=== PATIENT | male | born 1960 | race Caucasian/White ===

== ENCOUNTER 2017-01-07 11:32 | Day surgery (SDC) | payer OTHER ==
[2016-08-28 16:54] VITALS: BP 129/86
[~2017-01-07 11:32] MED LIST: LACTATED RINGERS 1,000 ML IV.SOLN IV ONE; LIDOCAINE HCL/PF 2% 100 MG/5 ML VIAL IJ ONE; PROPOFOL 500 MG/50 ML VIAL IV ONE; SALINE FLUSH 10 ML DISP.SYRIN IVF ONE
--- NOTE | 2017-01-07 13:54 | GI Report ---
REFERRING PHYSICIAN: Dr. Chencho Ballard SENIOR GAME DEVELOPER: Cesar Dayl MD PROCEDURE MEDICATION: Propofol as per anesthesia. INDICATIONS: A 56-year-old man who has has progressive difficulty swallowing over the last couple of months. He states he has never been evaluated before. Sometimes meats, bread, and dry things stop. He may be able to drink liquids to get them down or he may have to regurgitate them. Patient has a history of alcohol abuse in the past but has not drank for a couple of years. He still smokes a [id number] of cigarettes a day for 30 plus years. He has had a previous cholecystectomy. He is 5 feet 8 inches and weighs 220 pounds and carries that weight centrally. PROCEDURE PERFORMED: Endoscopy and esophageal dilatation with biopsies. PROCEDURE: An [employer] video endoscope was passed through the esophagus under direct visualization. Patient has grade 3 esophagitis at the GE junction with stricture. The cardia of the stomach with no obvious mass. He has severe gastritis particularly in the body and antrum with erosions, friability, and ulceration. Duodenal bulb also shows ulceration, superficial. A guidewire was placed in the stomach. The endoscope was removed and a 51-Panamanian, which is 17 mm, passed without resistance. The endoscope was re-introduced. There was some bleeding where the stricture was stretched. We did biopsy the stomach for pathology. We biopsied the GE junction, esophagitis. I do not see an obvious malignancy, though he is a high risk for that. FINDINGS: 1. Esophageal stricture dilated to a 51-Panamanian. 2. Grade 3 esophagitis. 3. Severe gastritis. RECOMMENDATIONS: 1. Pending the biopsies, he needs to be on a PPI daily like omeprazole 40 mg or 20 mg twice a day before breakfast and supper. 2. I recommend strongly discontinue tobacco usage. 3. Sleep with the bed elevated. 4. Pending the pathology, if there is Soto's esophagus, or anything else, he may need this re-looked at again within 2 years. cc: Dr. Chencho FELIX
== END 2017-01-07 11:33 ==
LOC: OPSURG 11:32
PROVIDERS: ATTEND Internal Medicine Gastroenterology
DX: K22.2 Esophageal obstruction (principal); K20.9 Esophagitis, unspecified; K29.70 Gastritis, unspecified, without bleeding; F10.21 Alcohol dependence, in remission; F17.210 Nicotine dependence, cigarettes, uncomplicated
CPT/HCPCS: 88305; 88342; J2001; J2704; J7120; 43248; S1016

== ENCOUNTER 2017-05-10 15:02 | Outpatient (CLI) | payer OTHER ==
[2016-08-28 16:54] VITALS: BP 129/86
== END 2017-05-10 15:03 ==
LOC: LABRHC 15:02
PROVIDERS: ATTEND Family Medicine
DX: N39.0 Urinary tract infection, site not specified (principal)
CPT/HCPCS: 87086; 87186

== ENCOUNTER 2018-08-04 20:29 | Emergency (ER) | payer OTHER ==
[2018-08-04] MEDS: NITROFURANTOIN 100 MG CAPSULE PO ONE (21:25)
[2018-08-04] MEDS: DOXYCYCLINE MONOHYDRATE 100 MG CAPSULE PO ONE (21:25)
--- NOTE | 2018-08-04 21:29 | ED Physician Documentation ---
General Adult - HISTORIAN Historian: patient - HPI Stated Complaint: Right Testicular Pain/Difficulty Urinating Chief Complaint: General Adult Additional Information: Lower abdominal and right scrotal pain began two days ago, with difficulty urinating. Took two leftover antibiotic pills earlier today and thought they made him better. Had UTI a year ago, his first. No fever. No other modifying factors or associated signs. - ROS CONST: no problems - PAST HX Past History: hypertension Allergies/Adverse Reactions: Allergies Allergy/AdvReac Type Severity Reaction Status Date / Time codeine Allergy Intermediate Hives Verified 08/04/18 20:42 Home Medications: Ambulatory Orders Medication Instructions Recorded Doxycycline Hyclate [Vibramycin] 100 mg PO Q12H #20 capsule 08/04/18 Nitrofurantoin Monohyd/M-Cryst 100 mg PO Q12H #14 capsule 08/04/18 [Macrobid 100 mg Capsule] amLODIPine BESYLATE [Norvasc] 5 mg PO DAILY 08/04/18 - SOCIAL HX Smoking History: cigarettes (1- 1 1/2 PPD since 10 y/o) - FAMILY HX Family History: No - VITAL SIGNS Vital Signs: Vital Signs Temp Pulse Resp BP Pulse Ox 98.1 F 82 18 158/68 98 08/04/18 20:30 08/04/18 20:30 08/04/18 20:30 08/04/18 20:30 08/04/18 20:30 - REVIEWED ASSESSMENTS Nursing Assessment Reviewed: Yes Vitals Reviewed: Yes Progress - Progress Progress: Given macrobid and doxycycline for likelihood of epididymitis in addition to UTI . ED Results Lab/Radiology - Orders Orders: ED Orders Category Date Time Status Doxycycline Monohydrate [Vibramycin] Med 08/04/18 21:21 Once 100 mg PO NOW ONE Nitrofurantoin Monohyd/M-Cryst [Macrobid] Med 08/04/18 21:21 Once 100 mg PO NOW ONE General Adult Physical Exam - PHYSICAL EXAM GENERAL APPEARANCE: mild distress EENT: eye inspection normal, ENT inspection normal NECK: normal inspection RESPIRATORY: no resp distress, breath sounds normal CVS: reg rate & rhythm, heart sounds normal ABDOMEN: other (right testicle quite tender to touch. Not tense.) BACK: no CVA tenderness, other (no vertebral tenderness) SKIN: warm/dry, normal color EXTREMITIES: normal range of motion (slow gait), no evidence of injury NEURO: CN's nml as tested, motor nml, sensation nml, cognition normal Discharge Clincal Impression: UTI (urinary tract infection) Qualifiers: Urinary tract infection type: acute cystitis Hematuria presence: with hematuria Qualified Code(s): N30.01 - Acute cystitis with hematuria Prescriptions: Doxycycline Hyclate [Vibramycin] 100 mg PO Q12H #20 capsule Nitrofurantoin Monohyd/M-Cryst [Macrobid 100 mg Capsule] 100 mg PO Q12H #14 capsule Referrals: Chencho Ballard MD [Primary Care Provider] - 2 Days Condition: Good Disposition: HOME, SELF-CARE Decision to Admit: NO Decision Time: 21:32
[2018-08-04 21:30] VITALS: BP 140/68
[2018-08-05 06:35] LABS: APPEARANCE,URINE CLOUDY (CLEAR); COLOR,URINE YELLOW (YELLOW); OCCULT BLOOD,URINE 2+ (NEGATIVE); PH URINE 6.5 (5.0 - 8.0)
== END 2018-08-04 21:28 | disposition home or self-care (01) ==
LOC: ED 20:29
DX: N30.01 Acute cystitis with hematuria (principal)
CPT/HCPCS: 81002; 87086; 99283

== ENCOUNTER 2018-08-06 12:16 | Outpatient (CLI) | payer OTHER ==
--- NOTE | 2018-08-06 18:44 | Diagnostic Imaging Report ---
JUJU ALLEN [facility] [address] [facility] [address] [address] Report Submission Date: Aug 06, 2018 12:53:37 PM CDT Patient Study Name: YOGI HUANG Date: Aug 06, 2018 12:23:05 PM CDT Modality Type: DX Gender: M Description: LOWER EXTREMITY : 60 Institution: [facility] Physician: JUJU ALLEN Examination: Plain film left knee History: LEFT KNEE, PAIN AND LOCKING IN LEFT KNEE. PT STATES INJURY TO KNEE OVER 20 YEARS AGO WITH PAIN WORSENING SINCE INJURY. NO RECENT INJURY (Hx) Findings: 3 views of the left knee demonstrates articular degenerative spurring. Medial joint space narrowing. No fracture. No dislocation. No joint effusion. No soft tissue irregularity. Impression: Degenerative changes. No acute osseous abnormality Electronically signed on Aug 06, 2018 12:53:37 PM CDT by: Jacob FELIX
--- NOTE | 2018-08-06 18:45 | Diagnostic Imaging Report ---
JUJU ALLEN [facility] [address] [facility] [address] [address] Report Submission Date: Aug 06, 2018 12:52:20 PM CDT Patient Study Name: YOGI HUANG Date: Aug 06, 2018 12:17:35 PM CDT Modality Type: DX Gender: M Description: SHOULDER : 60 Institution: [facility] Physician: JUJU ALLEN Examination: Plain film left shoulder History: LEFT SHOULDER, PAIN IN LEFT SHOULDER WORSENING FOR ABOUT A MONTH, NO KNOWN INJURY (Hx) Comparison exams: None provided Findings: 3 views of the left shoulder demonstrate normal cortical margins. No evidence for fracture or dislocation. Acromioclavicular joint degenerative spurring. No soft tissue abnormality Impression: Degenerative changes. No acute osseous process. Electronically signed on Aug 06, 2018 12:52:20 PM CDT by: Jacob FELIX
== END 2018-08-06 12:18 ==
LOC: RAD 12:16
PROVIDERS: ATTEND Family Medicine
DX: M25.512 Pain in left shoulder (principal); M25.562 Pain in left knee
CPT/HCPCS: 73030; 73562

== ENCOUNTER 2019-02-17 18:28 | Emergency (ER) | payer OTHER ==
[2019-02-17 19:18] LABS: MEAN CORPUSCULAR HEMOGLOBIN 29.9 pg (28.0-34.0)
[2019-02-17 19:19] LABS: BASOPHILS % 1.8 (0.0-1.5); EOSINOPHILS % 1.9 % (0.0-6.8); MONOCYTES % 7.3 % (0.0-11.0)
[2019-02-17 19:20] LABS: eGFR (Non-African) > 60
--- NOTE | 2019-02-17 19:25 | ED Physician Documentation ---
Upper Respiratory Symptoms - HISTORIAN Historian: patient - HPI Stated Complaint: cough/wheezing Chief Complaint: Cough/ Upper Respiratory Onset: days ago (11) Context: denies: recent foreign travel, insect bite(s), tick(s), recent chemotherapy, multiple patients, same sx, other Severity: moderate Associated Symptoms: fever, chills, runny nose, sore throat, productive cough Further Comments: yes (58 year old male patient presents with complaints of body aches, cough, congestion, wheezing, fever and chills for the past 11 days. Reports using some old antibiotics that he had at home for a few days. Does not know what kind or how many.) - ROS CONST/EYES: denies: weakness, eye redness, eye itching, other CVS/RESP: denies: none, chest pain, shortness of breath, palpitations, other LYMPH: denies: leg swelling, rash, swollen glands, ankle swelling, other GI/: none - PAST HX Lung Disease: COPD PE Risk Factors: hypertension Other History: other (GERD) Allergies/Adverse Reactions: Allergies Allergy/AdvReac Type Severity Reaction Status Date / Time codeine Allergy Intermediate Hives Verified 02/17/19 18:43 Home Medications: Ambulatory Orders Medication Instructions Recorded Benzonatate [Tessalon] 200 mg PO TID PRN #30 capsule 02/17/19 - SOCIAL HX Smoking History: cigarettes - FAMILY HX Family History: denies: none - VITAL SIGNS Vital Signs: Vital Signs Temp Pulse Resp BP Pulse Ox 97.6 F 83 24 145/72 94 02/17/19 18:36 02/17/19 18:36 02/17/19 18:36 02/17/19 18:36 02/17/19 18:36 - REVIEWED ASSESSMENTS Nursing Assessment Reviewed: Yes Vitals Reviewed: Yes Progress - Progress Progress: likely false negative influenza or viral syndrome. Lab WNL ED Results Lab/Radiology - Lab Results Lab Results: Lab Results 02/17/19 02/17/19 18:45 18:45 WBC 10.70 K/ul K/ul (4.00-12.00) RBC 5.20 M/ul M/ul (3.90-5.20) Hgb 15.5 g/dL g/dL (12.0-18.0) Hct 46.5 % % (37.0-53.0) MCV 89.0 fl fl (80.0-100.0) MCH 29.9 pg pg (28.0-34.0) MCHC 33.4 g/dL g/dL (30.0-36.0) RDW 13.9 % % (11.3-14.3) Plt Count 281 K/mm3 K/mm3 (130-400) Neut % (Auto) 55.8 % % (39.0-79.0) Lymph % (Auto) 33.2 % % (16.0-50.0) [place] % (Auto) 7.3 % % (0.0-11.0) Eos % (Auto) 1.9 % % (0.0-6.8) Baso % (Auto) 1.8 H (0.0-1.5) Neut # (Auto) 6.0 # k/uL # k/uL (1.4-7.7) Lymph # (Auto) 3.5 # k/uL # k/uL (0.6-4.0) [place] # (Auto) 0.8 # k/uL # k/uL (0.0-0.9) Eos # (Auto) 0.2 # k/uL # k/uL (0.0-0.6) Baso # (Auto) 0.2 # k/uL # k/uL (0.0-0.5) Sodium 143 mmol/L mmol/L (136-145) Potassium 3.9 mmol/L mmol/L (3.5-5.1) Chloride 104 mmol/L mmol/L (98-107) Carbon Dioxide 27 mmol/L mmol/L (22-30) BUN 10 mg/dL mg/dL (9-20) Creatinine 0.69 mg/dL mg/dL (0.66-1.25) Estimated Creat Clear 371 Est GFR ( Amer) > 60 (60 - ) Est GFR (Non-Af Amer) > 60 (60 - ) Glucose 99 mg/dL mg/dL (74-106) Calcium 8.9 mg/dL mg/dL (8.4-10.2) Total Bilirubin 0.3 mg/dL mg/dL (0.2-1.3) AST 29 U/L U/L (15-46) ALT 25 U/L U/L (13-69) Alkaline Phosphatase 86 U/L U/L (38-126) Total Protein 8.4 g/dL H g/dL (6.3-8.2) Albumin 4.0 g/dL g/dL (3.5-5.0) - Radiology Radiology Impressions: CHEST 2 VIEW HISTORY: FEVER, COUGH, SMOKER. FINDINGS: The PA & lateral chest x-ray demonstrate lungs to be clear of focal infiltrates and expanded bilaterally. Cardiac silhouette and bony thorax are unremarkable. IMPRESSION: No active intrathoracic disease seen. Electronically signed on Feb 17, 2019 7:15:27 PM CDT by: Marc Cuba - Orders Orders: ED Orders Category Date Time Status Place IV Lock 1T Care 02/17/19 18:37 Active CHEST 2VIEW [RAD] Stat Exams 02/17/19 18:37 Taken CBC/PLATELET/DIFF Stat Lab 02/17/19 18:45 Completed CMP Stat Lab 02/17/19 18:45 Completed INFLUENZA A&B Stat Lab 02/17/19 18:37 Ordered Benzonatate [Tessalon] Med 02/17/19 19:31 Once 200 mg PO NOW ONE Upper Respiratory Symptoms - EXAM General Appearance: mild distress EENT: eyes nml inspection, nml ENT inspection, lids & conjunct. nml, PERRL, ear nml, nose nml, pharynx nml, airway nml Respiratory: no resp. distress, breath sounds nml, no pain on inspiration, speaks full sentences, no pleuritic chest pain Abdomen: non-tender, no organomegaly, nml bowel sounds, no distention CVS: reg rate & rhythm, heart sounds normal, equal pulses, no murmur, no gallop, PMI nml, no JVD, no friction rub, 24 Skin: color nml, no rash, warm,dry Neuro/Psych: oriented x3, neuro intact, depressed mood/affect (flat affect), CN's nml as tested Discharge Clincal Impression: Influenza, Viral syndrome Prescriptions: Benzonatate [Tessalon] 200 mg PO TID PRN #30 capsule PRN Reason: Cough Referrals: Chencho Ballard MD [Primary Care Provider] - 2 Days Additional Instructions: a virus that cannot be treated with antibiotics. Rest Have plenty of sleep and rest. Stay away from others while you have a cold or flu. Take simple painkillers Such as Tylenol or ibuprofen, to help relieve headaches, muscles aches and pains and fever. Keep hydrated (drink plenty of fluids) This will help keep your throat moist and replace fluid lost due to a fever and sweating. Plenty of water is best. Avoid caffeine and alcohol as they will make you more dehydrated. Eat soft food If you have a sore throat soft foods are easier to swallow. Foods such as chicken soup may help a sore throat and reduce mucous. slot shift supervisor an over the counter decongestant such as pseudoped, dayquil and Nyquil at your pharmacy. You may want to try Vicks rub on your chest and/or feet. (Caution: Dayquil and Nyquil contain 325mg of Tylenol/acetaminophen per tablespoon) Cough drops as needed for cough and sore throat. Increase your fluid intake juices, hot tea, non-caffeinated beverages Vitamin C may be helpful in decreasing the length of your cold. Use a humidifier in the room where you sleep. You can also sit in a steam filled bathroom 1-2 times a day. Tylenol every 4 hours 650mg -1000mg (do not exceed 4000mg in 24 hours) as needed for fever, pain and body aches. Alternate with Ibuprofen Ibuprofen 600-800mg every 6 hours as needed for fever, pain and body aches. See your primary care doctor if your symptoms become worse or do not improve in the next 3-4 days. Condition: Stable Disposition: 01 HOME, SELF-CARE Decision to Admit: NO Decision Time: 19:34
[2019-02-17] MEDS: BENZONATATE 100 MG CAPSULE PO ONE (19:46)
[2019-02-17 20:07] VITALS: BP 142/74
--- NOTE | 2019-02-18 05:11 | Diagnostic Imaging Report ---
ROMI JAIME (ENTRY LEVEL PROGRAMMER) - ER [facility] [address] [address] Report Submission Date: Feb 17, 2019 7:15:27 PM CDT Patient Study Name: YOGI HUANG Date: Feb 17, 2019 6:39:53 PM CDT Modality Type: DX Gender: M Description: CHEST 2VIEW : 60 Institution: [facility] Physician: ROMI JAIME (ENTRY LEVEL PROGRAMMER) - ER CHEST 2 VIEW HISTORY: FEVER, COUGH, SMOKER. FINDINGS: The PA & lateral chest x-ray demonstrate lungs to be clear of focal infiltrates and expanded bilaterally. Cardiac silhouette and bony thorax are unremarkable. IMPRESSION: No active intrathoracic disease seen. Electronically signed on Feb 17, 2019 7:15:27 PM CDT by: Marc FELIX
== END 2019-02-17 19:50 | disposition home or self-care (01) ==
LOC: ED 18:28
DX: J11.1 Influenza due to unidentified influenza virus with other respiratory manifestations (principal); B34.9 Viral infection, unspecified; Z72.0 Tobacco use
CPT/HCPCS: 36415; 71046; 80053; 85025; 99283; A9270; S1016

== ENCOUNTER 2019-07-28 15:30 | Emergency (ER) | payer OTHER ==
[2019-07-28] MEDS: KETOROLAC TROMETHAMINE 30 MG/1ML VIAL IV ONE (16:17)
[2019-07-28 16:25] LABS: BASOPHILS % 0.6 % (0.0-1.5)
[2019-07-28 16:34] LABS: eGFR (Non-African) > 60
--- NOTE | 2019-07-28 16:36 | ED Physician Documentation ---
Flank Pain - HISTORIAN Historian: patient - HPI Stated Complaint: right flank pain Chief Complaint: Flank Pain Additional Information: Patient is a 59-year-old male who presents to the ER with c/o right sided flank pain that started about 2 days ago. He denies any injuries, denies hx of kidney stones. He states that it hurts to walk or sit. He is not tender upon palpation to the spine. Onset: days ago Duration: waxing, waning Timing: still present Context: denies: out of country travel, bad food, recent trauma Severity: moderate Quality: burning, sharp Associated Symptoms: none Exacerbated by: upright position, walking Relieved by: remaining still - ROS CONST: no problems GI/: none CVS/RESP: none EYES/ENT: none MS/SKIN/LYMPH: none NEURO/PSYCH: none - SOCIAL HX Smoking History: greater than 1 pack/day Alcohol Use: none Drug Use: none - FAMILY HX Family History: none - PAST HX Past History: GERD Other History: hypertension Surgeries/Procedures: cholecystectomy Immunizations: UTD Medications: see nurse note Allergies: NKDA - VITAL SIGNS Vital Signs: Vital Signs Temp Pulse Resp BP Pulse Ox 97.6 F 73 18 146/76 96 07/28/19 15:32 07/28/19 15:32 07/28/19 15:32 07/28/19 15:32 07/28/19 15:32 - REVIEWED ASSESSMENTS Nursing Assessment Reviewed: Yes Vitals Reviewed: Yes ED Results Lab/Radiology - Lab Results Lab Results: Lab Results 07/28/19 16:23 WBC 9.60 K/ul K/ul (4.00-12.00) RBC 4.85 M/ul M/ul (3.90-5.20) Hgb 14.9 g/dL g/dL (12.0-18.0) Hct 43.4 % % (37.0-53.0) MCV 90.0 fl fl (80.0-100.0) MCH 30.7 pg pg (28.0-34.0) MCHC 34.3 g/dL g/dL (30.0-36.0) RDW 12.7 % % (11.3-14.3) Plt Count 261 K/mm3 K/mm3 (130-400) Neut % (Auto) 52.2 % % (39.0-79.0) Lymph % (Auto) 36.3 % % (16.0-50.0) [place] % (Auto) 8.3 % % (0.0-11.0) Eos % (Auto) 2.6 % % (0.0-6.8) Baso % (Auto) 0.6 % % (0.0-1.5) Neut # (Auto) 5.0 # k/uL # k/uL (1.4-7.7) Lymph # (Auto) 3.5 # k/uL # k/uL (0.6-4.0) [place] # (Auto) 0.8 # k/uL # k/uL (0.0-0.9) Eos # (Auto) 0.3 # k/uL # k/uL (0.0-0.6) Baso # (Auto) 0.1 # k/uL # k/uL (0.0-0.5) - Radiology Radiology Impressions: Exam: CT abdomen and pelvis without contrast. History: Right flank pain. Axial images through the abdomen and pelvis without oral or IV contrast is submitted along with sagittal and coronal reformatted images. The visualized lower lung kohli are clear. No free intraperitoneal air is noted. The gallbladder is not visualized. The liver, spleen and pancreas are normal attenuation. The adrenal glands are normal configuration. The abdominal aorta is of normal caliber. No periaortic lymphadenopathy is identified. Both kidneys are normal attenuation without hydronephrosis or hydroureter. The urinary bladder is distended without trabeculation. The visualized appendix is of normal configuration. The small bowel is of normal caliber. Air and stool seen throughout the large intestine. No inflammatory changes in the mesentery or ascites is identified. No bony abnormalities are identified. Impression: no hydronephrosis or hydroureter. Nonspecific bowel gas pattern. No inflammatory changes in the mesentery or ascites is identified. - Orders Orders: ED Orders Category Date Time Status Place IV Lock 1T Care 07/28/19 16:09 Active KIDNEY STONE PROTOCOL [CT ABD & PELVIS W/O CON] Stat Exams 07/28/19 Taken CBC/PLATELET/DIFF Routine Lab 07/28/19 16:23 Completed CMP Routine Lab 07/28/19 16:23 Received URINALYSIS Routine Lab 07/28/19 Ordered Ketorolac Tromethamine [Toradol] Med 07/28/19 16:09 Discontinued 30 mg IV NOW ONE Abdominal Pain Physical Exam - Physical Exam General Appearance: alert, mild distress EENT: eye inspection normal, ENT inspection normal, pharynx normal, no signs of dehydration, COLE NECK: normal inspection, supple RESPIRATORY: chest non-tender, breath sounds normal CVS: heart sounds normal, equal pulses ABDOMEN: decreased BS BACK: CVA tenderness (R) SKIN: warm/dry EXTREMITIES: non-tender, normal range of motion NEURO: oriented X3, CN's nml as tested, motor nml, sensation nml, mood/affect nml, cognition normal Vital Signs: Vital Signs Temp Pulse Resp BP Pulse Ox 97.6 F 73 18 146/76 96 07/28/19 15:32 07/28/19 15:32 07/28/19 15:32 07/28/19 15:32 07/28/19 15:32 Discharge Clincal Impression: Back pain Referrals: Chencho Ballard MD [Primary Care Provider] - 2 Days Additional Instructions: Take Cyclobenzaprine 10mg by mouth every 8 hours as needed for muscle spasm (no driving) Alternate Tylenol and Ibuprofen as needed for pain Take Tramadol 50mg by mouth every 6 hours as needed for breakthrough pain Keep appointment with PCP tomorrow Condition: Good Disposition: 01 HOME, SELF-CARE Decision to Admit: NO Decision Time: 17:00
[2019-07-28] MEDS: traMADol HCL 50 MG TABLET PO ONE (17:24)
[2019-07-28] MEDS: CYCLOBENZAPRINE HCL 10 MG TABLET PO ONE (17:24)
[2019-07-28 17:50] VITALS: BP 158/71
[2019-07-29 07:32] LABS: APPEARANCE,URINE CLEAR (CLEAR); COLOR,URINE YELLOW (YELLOW); OCCULT BLOOD,URINE TRACE-INTACT (NEGATIVE); UROBILINOGEN URINE 0.2 Eu (0.2-1.0)
--- NOTE | 2019-07-29 12:20 | Diagnostic Imaging Report ---
ZOHAIB FRITZ ED [facility] [address] [facility] [address] [place], [place]. [address] Report Submission Date: Jul 28, 2019 4:49:14 PM CDT Patient Study Name: YOGI HUANG Date: Jul 28, 2019 4:20:50 PM CDT Modality Type: CT\SR Gender: M Description: CT ABD PELVIS W/O CO : 60 Institution: [facility] Physician: ZOHAIB FRITZ ED Exam: CT abdomen and pelvis without contrast. History: Right flank pain. Axial images through the abdomen and pelvis without oral or IV contrast is submitted along with sagittal and coronal reformatted images. The visualized lower lung kohli are clear. No free intraperitoneal air is noted. The gallbladder is not visualized. The liver, spleen and pancreas are normal attenuation. The adrenal glands are normal configuration. The abdominal aorta is of normal caliber. No periaortic lymphadenopathy is identified. Both kidneys are normal attenuation without hydronephrosis or hydroureter. The urinary bladder is distended without trabeculation. The visualized appendix is of normal configuration. The small bowel is of normal caliber. Air and stool seen throughout the large intestine. No inflammatory changes in the mesentery or ascites is identified. No bony abnormalities are identified. Impression: no hydronephrosis or hydroureter. Nonspecific bowel gas pattern. No inflammatory changes in the mesentery or ascites is identified. Electronically signed on Jul 28, 2019 4:49:14 PM CDT by: Perez FELIX
== END 2019-07-28 17:34 | disposition home or self-care (01) ==
LOC: ED 15:30
DX: M54.9 Dorsalgia, unspecified (principal)
CPT/HCPCS: 74176; 80053; 85025; 96374; 99284; J1885; 81002; S1016

== ENCOUNTER 2019-12-07 09:58 | Day surgery (SDC) | payer OTHER ==
[~2019-12-07 09:58] MED LIST changes: +LIDOCAINE HCL 2% PF 100MG/5ML VIAL IJ ONE; -LIDOCAINE HCL/PF 2% 100 MG/5 ML VIAL IJ ONE; +PROPOFOL 200 MG/20 ML VIAL IV ONE; -PROPOFOL 500 MG/50 ML VIAL IV ONE; -SALINE FLUSH 10 ML DISP.SYRIN IVF ONE
--- NOTE | 2019-12-09 13:46 | GI Report ---
DATE OF PROCEDURE: 12/07/2019 REFERRING PHYSICIAN: Dr. Ballard. PROCEDURE PERFORMED: Endoscopy, dilatation, biopsy. SURGEON: Ian Rayo M.D., BibianaCMat. INDICATION FOR PROCEDURE: This 59-year-old man has had difficulty swallowing. He did have a stricture and esophagitis we dilated several years ago. He apparently was taking Zantac and an H2 sabiha and stopped it when there was the recall. He started having difficulty swallowing again. Unfortunately, he continues to use tobacco. He was positive for H. pylori and was treated with a triple regimen last time in 2017. PROCEDURE MEDICATION: Propofol, as per Anesthesia. DESCRIPTION OF PROCEDURE: The [employer] video endoscope was passed through the esophagus under direct visualization. He does have a benign-appearing stricture of the GE junction, and at least grade 2 esophagitis. Fundus, body and antrum of the stomach: There still was some gastritis. We did re-biopsy to see whether H. pylori persists or not. Duodenal bulb, first and second part of the duodenum: Examined, and was normal. A guidewire was placed in the stomach. The endoscope was removed and a #51, 17 mm Savary-Candido was passed without resistance. The endoscope was reintroduced. There was some bleeding where the stricture was stretched. We also then took biopsies at the GE junction for pathology. The patient tolerated the procedure well, though on his EKG before the procedure he may have a partial bundle branch block. FINDINGS: 1. Esophageal stricture dilated to #51F. 2. Esophagitis. 3. Gastritis. RECOMMENDATIONS: I would put him back on a PPI like omeprazole at least 20 mg before his first meal daily, elevate the bed and discontinue tobacco use would be beneficial. In addition, I think he probably needs a cardiac evaluation. I suspect he has underlying risk for heart disease. He is to follow up with Dr. Ballard. IAN RAYO M.D., F.A.C.P. DARVIN/babita Job#: [id number] Cc: Dr. Nellie FELIX
== END 2019-12-07 12:22 | disposition home or self-care (01) ==
LOC: OPSURG 09:58
PROVIDERS: ADMIT Family Medicine; ATTEND Internal Medicine Gastroenterology
DX: R13.10 Dysphagia, unspecified (principal); K22.2 Esophageal obstruction; K22.8 Other specified diseases of esophagus
CPT/HCPCS: 43239; 43248; 88305; 93005; J2001; J2704; J7120